=== PATIENT | male | born 1975 ===

== ENCOUNTER 2016-12-31 02:50 | Emergency (ER) | payer BC, OTHER ==
[2016-12-31 02:58] VITALS: BMI 53.1
[2016-12-31 03:09] VITALS: RESP 16; TEMP 98.1; O2SAT 97
--- NOTE | 2016-12-31 03:25 | ED PDOC ---
Arrival/HPI - General Chief Complaint: ENT Problem Time Seen by Provider: 12/31/16 03:21 Historian: Patient - History of Present Illness Narrative History of Present Illness (Text): 12/31/16 03:25 Kevin Pablo is a 41 year old male who presents to the emergency department complaining of a bloody nose for the past 30 minutes. Patient states he had a similar episode yesterday which resolved on its own. Patient denies any recent use of blood thinners, cold-like symptoms, fever, chills, shortness of breath, cough, chest pain, headache, dizziness, or any other complaints Time/Duration: 1/2 hour Symptom Onset: Gradual Symptom Course: Unchanged Activities at Onset: Rest, Light Context: Home Past Medical History - Provider Review Nursing Documentation Reviewed: Yes - Infectious Disease Hx of Infectious Diseases: None - Neurological Hx Syncope: Yes Other/Comment: [place] Palsy - Psychiatric Hx Substance Use: No - Surgical History Hx Appendectomy: Yes Hx Tonsillectomy: Yes - Anesthesia Hx Anesthesia: Yes Hx Anesthesia Reactions: No Hx Malignant Hyperthermia: No Family/Social History - Physician Review Nursing Documentation Reviewed: Yes Family/Social History: No Known Family HX Smoking Status: Never Smoked Hx Alcohol Use: No Hx Substance Use: No Allergies/Home Meds Allergies/Adverse Reactions: Allergies aspirin Allergy (Verified 12/31/16 02:53) RASH ibuprofen Allergy (Verified 12/31/16 02:53) RASH Review of Systems - Physician Review All systems were reviewed & negative as marked: Yes - Review of Systems Constitutional: Normal. absent: Fevers Eyes: Normal ENT: Epistaxis Respiratory: Normal. absent: SOB, Cough Cardiovascular: Normal. absent: Chest Pain Gastrointestinal: Normal. absent: Abdominal Pain, Diarrhea, Nausea, Vomiting Genitourinary Male: Normal. absent: Dysuria, Frequency, Hematuria, Urinary Output Changes Musculoskeletal: Normal. absent: Back Pain, Neck Pain Skin: Normal. absent: Rash Neurological: Normal. absent: Headache, Dizziness Endocrine: Normal Hemo/Lymphatic: Normal Psychiatric: Normal Physical Exam Vital Signs Reviewed: Yes Vital Signs Temp Pulse Resp BP Pulse Ox 12/31/16 03:08 98.1 F 101 H 16 158/98 H 97 Temperature: Afebrile Blood Pressure: Normal Pulse: Regular Respiratory Rate: Normal Appearance: Positive for: Well-Appearing, Non-Toxic, Comfortable Pain Distress: None Mental Status: Positive for: Alert and Oriented X 3 - Systems Exam Head: Present: Atraumatic, Normocephalic Pupils: Present: PERRL Extroacular Muscles: Present: EOMI Conjunctiva: Present: Normal Ears: Present: Normal, NORMAL TM, Normal Canal. No: Erythema Mouth: Present: Moist Mucous Membranes Pharnyx: Present: Normal. No: ERYTHEMA, EXUDATE, TONSILS ENLARGED, Peritonsilar Swelling, Uvular Deviation, Muffled/Hoarse Voice, Strider, Soft Palate/Uvular Edema Nose (External): Present: Atraumatic Nose (Internal): Present: Epistaxis (Bleeding from right nares) Neck: Present: Normal Range of Motion Respiratory/Chest: Present: Clear to Auscultation, Good Air Exchange. No: Respiratory Distress, Accessory Muscle Use Cardiovascular: Present: Regular Rate and Rhythm, Normal S1, S2. No: Murmurs Upper Extremity: Present: Normal Inspection. No: Cyanosis, Edema Lower Extremity: Present: Normal Inspection. No: Edema Neurological: Present: GCS=15, CN II-XII Intact, Speech Normal Skin: Present: Warm, Dry, Normal Color. 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 Differential Diagnosis included but are not limited to: epistaxis Plan: -- Reassess and disposition Progress Notes: PROCEDURE: EPISTAXIS MANAGEMENT Performed by the emergency provider Consent: Informed consent was obtained after discussion of the risks, benefits, and alternatives to the procedure. Timeout: A timeout to verify the correct patient, procedure, and site was performed immediately prior to the procedure. Indication: Nasal bleeding control Location: right nares Bleeding Source: Anterior Kiesselbach's plexus Packin.5 cm rapid rhino Post-procedure: Good hemostasis. The patient was observed following procedure and no repeat episode of bleeding was noted. Patient tolerated the procedure well with no immediate complications. 12/31/16 04:58 On reevaluation the patient feels better and is in no acute distress. I have discussed the results and plan with the patient, who expresses understanding. Patient given the opportunity to ask question, all questions were answered and there is agreement with the plan to discharge the patient home. Patient is stable for discharge. Patient was instructed to follow up with physician/clinic in 1-2 days or return if symptoms persist/worsen or new concerning symptoms arise. - Medication Orders Current Medication Orders: Discontinued Medications Amoxicillin (Amoxil 500 Mg Cap) 500 mg PO STAT STA PRN Reason: Protocol Stop: 12/31/16 04:52 - Scribe Statement The provider has reviewed the documentation as recorded by the Carlos Hurt Provider Attestation: All medical record entries made by the Nathanaelibnaina were at my direction and personally dictated by me. I have reviewed the chart and agree that the record accurately reflects my personal performance of the history, physical exam, medical decision making, and the department course for this patient. I have also personally directed, reviewed, and agree with the discharge instructions and disposition. Disposition/Present on Arrival - Present on Arrival Any Indicators Present on Arrival: No History of DVT/PE: No History of Uncontrolled Diabetes: No Urinary Catheter: No History of Decub. Ulcer: No History Surgical Site Infection Following: None - Disposition Have Diagnosis and Disposition been Completed?: Yes Diagnosis: Epistaxis Disposition: HOME/ ROUTINE Disposition Time: 04:53 Patient Plan: Discharge Patient Problems: Current Active Problems Problem Status Onset Epistaxis Acute Condition: STABLE Discharge Instructions (ExitCare): Nosebleed (ED) Additional Instructions: Maintain nasal tampon/take meds as prescribed/Follow up with the ear/nose/ throat doctor tomorrow Prescriptions: Amoxicillin [Amoxil 500 mg Cap] 500 mg PO TID #21 cap Referrals: Phani Diaz DO [Staff Provider] - Follow up with primary
[2016-12-31 05:22] VITALS: BP 153/103; PULSE 93
== END 2016-12-31 05:24 | disposition home or self-care (01) ==
LOC: ED 02:50
DX: R04.0 Epistaxis (principal)

== ENCOUNTER 2018-11-06 17:16 | Outpatient (CLI) | payer BC | END 2018-11-06 17:17 | disposition home or self-care (01) | LOC: RAD 17:16 ==

== ENCOUNTER 2019-01-08 15:06 | Outpatient (CLI) | payer BC | END 2019-01-08 15:07 | disposition home or self-care (01) | LOC: RAD 15:06 ==

== ENCOUNTER 2019-01-09 15:21 | Outpatient (CLI) | payer BC | END 2019-01-09 15:22 | disposition home or self-care (01) | LOC: RAD 15:21 | DX: S86.011A Strain of right Achilles tendon, initial encounter (principal) ==